=== PATIENT | female | born 1960 | race Caucasian/White ===

== ENCOUNTER 2024-02-20 08:56 | Emergency (ER) | payer BC ==
[~2024-02-20] VITALS: Ht 162.6 cm; Wt 65.8 kg
[~2024-02-20 08:56] MED LIST: Carafate1 GM/10 ML PO; IBUP400 PO
[2024-02-20] MEDS ORDERED: CHLO25B PO (09:50)
[2024-02-20] MEDS ORDERED: LISI20 PO (09:51)
[2024-02-20 09:52] LABS: BASOPHILS ABSOLUTE AUTO 0.03 K/mm3 (0.00-0.23); BASOPHILS PERCENT AUTO 0 % (0-2); EOSINOPHILS ABSOLUTE AUTO 0.08 K/mm3 (0.00-0.68); EOSINOPHILS PERCENT AUTO 1 % (0-6); IMMATURE GRAN ABSOLUTE AUTO 0.02 K/mm3 (0.00-0.10); IMMATURE GRAN PERCENT AUTO 0 % (0-1); LYMPHOCYTES ABSOLUTE AUTO 1.52 K/mm3 (0.84-5.20); LYMPHOCYTES PERCENT AUTO 17 % (21-46); MONOCYTES ABSOLUTE AUTO 0.42 K/mm3 (0.16-1.47); MONOCYTES PERCENT AUTO 5 % (4-13); Mean Corpuscular HGB 33.2 pg (26.0-34.0); Mean Corpuscular HGB Conc 35.7 g/dL (31.5-36.5); Mean Corpuscular Volume 93 fL (80-100); Mean Platelet Volume 9.2 fL (9.1-12.4); NEUTROPHILS ABSOLUTE AUTO 7.06 K/mm3 (1.96-9.15); NEUTROPHILS PERCENT AUTO 77 % (41-73); Platelet Count 317 K/mm3 (150-400); RDW Coefficient Variation 12.8 % (11.7-14.2); RDW Standard Deviation 43.6 fL (35.1-46.3); Red Blood Cell Count 4.52 M/mm3 (3.80-5.20); White Blood Cell Count 9.13 K/mm3 (4.00-11.30)
[2024-02-20 10:25] LABS: Thyroid Stimulating Hormone 1.39 uIU/mL (0.360-4.800)
[2024-02-20 10:33] LABS: Albumin, Blood 3.9 g/dL (3.4-5.0); Albumin/Globulin Ratio 1.2 (0.8-1.8); Bilirubin, Total 0.7 mg/dL (0.1-1.0); Bun/Creatinine Ratio 30.1 (12.0-20.0); Calcium, Blood 8.9 mg/dL (8.5-10.1); Creatinine, Blood 0.67 mg/dL (0.40-1.00); Globulin, Blood 3.3 g/dL (2.2-4.0); Potassium, Blood 3.2 mmol/L (3.5-5.5); Total Protein, Blood 7.2 g/dL (6.4-8.2)
[2024-02-20] MEDS ORDERED: Potassium Chloride 20 MEQ TabCR PO ONE (11:00)
[2024-02-20 13:10] VITALS: BP 148/98
== END 2024-02-20 13:13 | disposition home or self-care (01) ==
LOC: ER 08:56
PROVIDERS: Emergency Medicine
DX: R55 Syncope and collapse (principal); R00.2 Palpitations; E87.6 Hypokalemia; I10 Essential (primary) hypertension; F17.210 Nicotine dependence, cigarettes, uncomplicated; Z88.8 Allergy status to other drugs, medicaments and biological substances
CPT/HCPCS: 80053; 83735; 83880; 84443; 85025; 93005; 93010; 93246; 99284-25; A9270

== ENCOUNTER → 2024-03-27 | Outpatient (CLI) | payer BC ==
[~2024-03-27] MED LIST changes: +CEPH500 PO; +CHLO25B PO; +HYDCHL25 PO; +LISI20 PO; +OXAYDO5 M7 PO
[2024-03-27 08:48] LABS: BASOPHILS ABSOLUTE AUTO 0.02 K/mm3 (0.00-0.23); BASOPHILS PERCENT AUTO 0 % (0-2); EOSINOPHILS ABSOLUTE AUTO 0.02 K/mm3 (0.00-0.68); EOSINOPHILS PERCENT AUTO 0 % (0-6); Hemoglobin 17.3 g/dL (11.5-16.0); IMMATURE GRAN ABSOLUTE AUTO 0.04 K/mm3 (0.00-0.10); IMMATURE GRAN PERCENT AUTO 0 % (0-1); LYMPHOCYTES ABSOLUTE AUTO 1.45 K/mm3 (0.84-5.20); LYMPHOCYTES PERCENT AUTO 11 % (21-46); MONOCYTES ABSOLUTE AUTO 0.68 K/mm3 (0.16-1.47); MONOCYTES PERCENT AUTO 5 % (4-13); Mean Corpuscular HGB 34.3 pg (26.0-34.0); Mean Corpuscular Volume 95 fL (80-100); Mean Platelet Volume 9.2 fL (9.1-12.4); NEUTROPHILS ABSOLUTE AUTO 10.53 K/mm3 (1.96-9.15); NEUTROPHILS PERCENT AUTO 83 % (41-73); Platelet Count 338 K/mm3 (150-400); RDW Coefficient Variation 12.9 % (11.7-14.2); RDW Standard Deviation 44.8 fL (35.1-46.3); Red Blood Cell Count 5.05 M/mm3 (3.80-5.20); White Blood Cell Count 12.74 K/mm3 (4.00-11.30)
[2024-03-27 09:01] LABS: Albumin/Globulin Ratio 1.1 (0.8-1.8); Bilirubin, Total 0.5 mg/dL (0.1-1.0); Bun/Creatinine Ratio 18.9 (12.0-20.0); Calcium, Blood 9.2 mg/dL (8.5-10.1); Creatinine, Blood 1.11 mg/dL (0.40-1.00); Globulin, Blood 3.8 g/dL (2.2-4.0); Total Protein, Blood 7.8 g/dL (6.4-8.2)
== END | disposition home or self-care (01) ==
LOC: LAB 08:44 → LAB SHORT 08:44
PROVIDERS: Family Medicine
DX: R10.9 Unspecified abdominal pain (principal)
CPT/HCPCS: 80053; 83690; 85025

== ENCOUNTER 2024-03-28 12:57 | Inpatient (IN) | payer BC ==
[~2024-03-28] VITALS: Ht 162.6 cm; Wt 64.5 kg
[2024-03-28 13:34] VITALS: BP 106/71
[2024-03-28] MEDS ORDERED: Morphine Sulfate 4 MG/1 ML Injection IV PRN (16:25)
[2024-03-28] MEDS ORDERED: Ondansetron HCl 2 MG / ML 2ML Vial IV PRN (16:30)
[2024-03-28] MEDS ORDERED: Lactated Ringer's 1,000 ML IV SCH (16:30)
[2024-03-28] MEDS ORDERED: Potassium Chloride 40 MEQ in NS 250 ML IV ONE (16:35)
--- NOTE | 2024-03-28 19:11 | NUR ---
ADMISSION NOTE/SHIFT ASSESSMENT PATIETN A/OX4, ABLE TO MKAE NEEDS KNOWN. INDEPENDENT WITH AMBULATION. DIRECT ADMIT FROM [facility], PATIENT WITH PIV ACCESS TO L AC UPON ARRIVAL WHICH WAS REMOVED DUE TO PAIN. NEW PIV PLACED TO LEFT FA. LACTATED RINGERS AND POTASSIUM CHLORIDE INFUSING PER SEP. MORPHINE GIVEN FOR LOWER ABDOMINAL PAIN. VSS, BLOOD PRESSURES SOFT, PATIENT DENIES LIGHT HEADEDNESS OR DIZZINESS. PATIENT SMOKES APPROX 10 CIGARETTES A DAY, REFUSING NICOTINE PATCH AT THIS TIME. INFORMED PATIENT IT IS AVAILABLE UPON REQUEST. PATIENT SKIN INTACT, NO ISSUES NOTED. REMAINS NPO D/T SMALL BOWEL OBSTRUCTION. DENIES NAUSEA AT THIS TIME. NO OTHER CONCERNS.
[2024-03-28 20:06] VITALS: BP 131/81
[2024-03-29 02:14] VITALS: BP 108/61
[2024-03-29 05:10] LABS: BASOPHILS ABSOLUTE AUTO 0.02 K/mm3 (0.00-0.23); BASOPHILS PERCENT AUTO 0 % (0-2); EOSINOPHILS ABSOLUTE AUTO 0.21 K/mm3 (0.00-0.68); EOSINOPHILS PERCENT AUTO 3 % (0-6); Hematocrit 36.8 % (33.0-51.0); Hemoglobin 12.7 g/dL (11.5-16.0); IMMATURE GRAN ABSOLUTE AUTO 0.02 K/mm3 (0.00-0.10); IMMATURE GRAN PERCENT AUTO 0 % (0-1); LYMPHOCYTES ABSOLUTE AUTO 1.99 K/mm3 (0.84-5.20); LYMPHOCYTES PERCENT AUTO 31 % (21-46); MONOCYTES ABSOLUTE AUTO 0.51 K/mm3 (0.16-1.47); MONOCYTES PERCENT AUTO 8 % (4-13); Mean Corpuscular HGB 33.8 pg (26.0-34.0); Mean Corpuscular HGB Conc 34.5 g/dL (31.5-36.5); Mean Corpuscular Volume 98 fL (80-100); Mean Platelet Volume 9.8 fL (9.1-12.4); NEUTROPHILS ABSOLUTE AUTO 3.71 K/mm3 (1.96-9.15); NEUTROPHILS PERCENT AUTO 57 % (41-73); Platelet Count 237 K/mm3 (150-400); RDW Coefficient Variation 12.7 % (11.7-14.2); RDW Standard Deviation 45.7 fL (35.1-46.3); Red Blood Cell Count 3.76 M/mm3 (3.80-5.20); White Blood Cell Count 6.46 K/mm3 (4.00-11.30)
[2024-03-29 05:43] LABS: Albumin/Globulin Ratio 1.1 (0.8-1.8); Bilirubin, Total 0.5 mg/dL (0.1-1.0); Calcium, Blood 8.7 mg/dL (8.5-10.1); Creatinine, Blood 0.68 mg/dL (0.40-1.00); Globulin, Blood 2.7 g/dL (2.2-4.0); Potassium, Blood 3.9 mmol/L (3.5-5.5); Total Protein, Blood 5.7 g/dL (6.4-8.2)
--- NOTE | 2024-03-29 05:45 | NUR ---
SHIFT SUMMARY PT DENIES PAIN, N/V, DISCOMFORT DURING THIS SHIFT. PT REPORTS NO BM OR PASSING GAS @NIGHT TIME. PT'S LAYING IN BED WITH THE PT. LR INFUSING ORDERED. BOWEL TONES HYPOACTIVE PER AUSCULTATION. ABDOMEN TENDER, MODERATELY DISTENDED PER PALPATION. PT AMBULATES INDEPENDENTLY IN THE HOSPITAL ROOM. NO ACUTE EVENTS DURING THIS SHIFT. BED AT THE LOWEST POSITION, CALL LIGHT WITHIN REACH. PT IS A&O X4, ABLE TO MAKE HER NEEDS KNOWN.
[2024-03-29 07:21] VITALS: BP 130/77
[2024-03-29] MEDS ORDERED: Heparin Sodium,Porcine 5,000 UNIT/0.5 ML SDV SC SCH (09:00)
[2024-03-29 15:33] VITALS: BP 164/86
[2024-03-29] MEDS ORDERED: Piperacillin/Tazobactam Sod 3.375 GM in NS 100 ML IV SCH (16:40)
[2024-03-29] MEDS ORDERED: HydrALAZINE HCl 20 MG / ML 1ML Vial IV PRN (17:05)
[2024-03-29 18:11] VITALS: BP 165/87
[2024-03-29] MEDS ORDERED: HydroCHLOROthiazide 25 mg Tab PO PRN (18:45)
[2024-03-29] MEDS ORDERED: Lisinopril 20 MG Tab PO ONE (18:45)
--- NOTE | 2024-03-29 18:46 | NUR ---
TELEPHONE ORDER SPOKE WITH MD REGARDING PATIENT'S ELEVATED BP SYSTOLIC >160s. HYDRALAZINE INEFFECTIVE. ONE TIME ORDER FOR LISINOPRIL 20MG NOW. ORDERS TO RECHECK BLOOD PRESSURE AT 2100, IF SBP>160 ADMINISTER HYDROCHLORITHIAZIDE 12.5MG PO.
--- NOTE | 2024-03-29 19:21 | NUR ---
SHIFT SUMMARY PATIENT A/OX4, INDEPENDENT WITH AMBULATION AND ADLs. SHOWERED THIS AM AND WALKER THROUGHOUT THE HOSPITAL. DENIES PAIN THIS SHIFT, TOLERATING CLEAR LIQUID DIET. NO BOWEL MOVEMENTS THIS SHIFT, BUT PATIENT STATES IS PASSING GAS. SBP ELEVATED THIS EVENING AND HOME MEDICATION ORDERED. HYDRALAZINE GIVEN, INEFFECTIVE. KAIAWHINA KURA [place] MAORI MD NOTIFIED AND ONE TIME ORDER OF LISINOPRIL GIVEN. INFORMED [employer] PUZZLE MAKER TO ADMINISTER ONE TIME ORDER OF HYDROCHLORITHIAZIDE IF SBP REMAINS >160 AT 2100. PATIENT COMPLAINING OF HEADACHE, PATIENT BELIEVES R/T ELEVATED BLOOD PRESSURE. SURGERY CONSULTED AND PLAN TO HAVE LAPROSCOPIC ABDOMINAL SURGERY TOMORROW AT 1030. PATIENT TO BE NPO AT 0400 03/30/24, MAY REMAIN ON CLEAR LIQUIDS UNTIL THEN. AT BEDSIDE DURING SHIFT REPORT. NO OTHER CONCERNS AT THIS TIME.
[2024-03-29 19:34] VITALS: BP 158/89
[2024-03-29 20:53] VITALS: BP 130/79
[2024-03-30] VITALS (25 sets, daily range): BP systolic 115–159; BP diastolic 62–95
[2024-03-30 05:49] LABS: BASOPHILS ABSOLUTE AUTO 0.03 K/mm3 (0.00-0.23); BASOPHILS PERCENT AUTO 0 % (0-2); EOSINOPHILS ABSOLUTE AUTO 0.11 K/mm3 (0.00-0.68); EOSINOPHILS PERCENT AUTO 2 % (0-6); Hematocrit 37.1 % (33.0-51.0); Hemoglobin 13.2 g/dL (11.5-16.0); IMMATURE GRAN ABSOLUTE AUTO 0.03 K/mm3 (0.00-0.10); IMMATURE GRAN PERCENT AUTO 0 % (0-1); LYMPHOCYTES ABSOLUTE AUTO 1.65 K/mm3 (0.84-5.20); LYMPHOCYTES PERCENT AUTO 23 % (21-46); MONOCYTES ABSOLUTE AUTO 0.58 K/mm3 (0.16-1.47); MONOCYTES PERCENT AUTO 8 % (4-13); Mean Corpuscular HGB 33.7 pg (26.0-34.0); Mean Corpuscular HGB Conc 35.6 g/dL (31.5-36.5); Mean Corpuscular Volume 95 fL (80-100); Mean Platelet Volume 10.5 fL (9.1-12.4); NEUTROPHILS ABSOLUTE AUTO 4.84 K/mm3 (1.96-9.15); NEUTROPHILS PERCENT AUTO 67 % (41-73); Platelet Count 248 K/mm3 (150-400); RDW Coefficient Variation 12.4 % (11.7-14.2); RDW Standard Deviation 43.4 fL (35.1-46.3); Red Blood Cell Count 3.92 M/mm3 (3.80-5.20); White Blood Cell Count 7.24 K/mm3 (4.00-11.30)
--- NOTE | 2024-03-30 05:57 | NUR ---
SHIFT SUMMARY: PATIENT IS A&OX4, VSS, REPORTS ABD. DISCOMFORT AND SLIGHT NAUSEA BUT HAS REFUSES ANY PAIN OR NAUSEA MEDICATION. PATIENT HAS BEEN NPO SINCE [place]. IS AT BEDSIDE.
[2024-03-30 06:26] LABS: Albumin, Blood 3.2 g/dL (3.4-5.0); Albumin/Globulin Ratio 1.2 (0.8-1.8); Bilirubin, Total 0.4 mg/dL (0.1-1.0); Bun/Creatinine Ratio 10.3 (12.0-20.0); Calcium, Blood 9.1 mg/dL (8.5-10.1); Creatinine, Blood 0.48 mg/dL (0.40-1.00); Globulin, Blood 2.7 g/dL (2.2-4.0); Potassium, Blood 3.2 mmol/L (3.5-5.5); Total Protein, Blood 5.9 g/dL (6.4-8.2)
[2024-03-30] MEDS ORDERED: Lisinopril 20 MG Tab PO SCH (09:00)
[2024-03-30] MEDS ORDERED: Lactated Ringer's 1,000 ML IV SCH ×2 (14:10→18:00)
--- NOTE | 2024-03-30 14:39 | NUR ---
Ambulatory in Day SurgeryPre-Op teaching done. Pt verbalizes understanding. Patient confirms NPO status and agrees with scheduled surgery. History, Chart, Medications and Allergies reviewed before start of procedure.
[2024-03-30] MEDS ORDERED: Piperacillin/Tazobactam Sod 3.375 GM ONE (14:56)
[2024-03-30] MEDS ORDERED: Bupivacaine 0.5% HCl 5 MG/ML 30MLVIAL ONE (15:02)
--- NOTE | 2024-03-30 15:15 | NUR ---
SHIFT SUMMARY AND TRANSFER TO DAY SURGERY PATIENT ALERT AND INTERACTIVE. PATIENT INDEPENDENT IN THE ROOM. PATIENT DENIES ANY PAIN BUT HAD SOME NAUSEA AT START OF SHIFT. PATIENT REPORTS FEELING FULL AND BLOATED. PATIENT EAGER TO GET SURGERY DONE. PROVIDED EDUCATION ON MOBILIZING POST OP AND PAIN MANAGEMENT. PATIENT TRANSPORTED TO DAY SURGERY BY DAY SURGERY STAFF
[2024-03-30] MEDS ORDERED: FentaNYL Citrate 50 MCG/ML 2 ML Injection ONE ×2 (15:23→18:44)
[2024-03-30] MEDS ORDERED: Midazolam HCl 1MG / ML 2ML Vial ONE (15:23)
[2024-03-30] MEDS ORDERED: Rocuronium Bromide 10 MG/ML 5ML Injection IV ONE (15:23)
[2024-03-30] MEDS ORDERED: Ondansetron HCl 2 MG / ML 2ML Vial ONE ×2 (15:45→18:24)
[2024-03-30] MEDS ORDERED: Neostigmine Methylsulfate 5MG/5ML SYR ONE (15:45)
[2024-03-30] MEDS ORDERED: Ketorolac Tromethamine 30mg Vial ONE (15:45)
[2024-03-30] MEDS ORDERED: Dexamethasone Sod Phos 10 MG/ML 1ML VIAL ONE (15:45)
[2024-03-30] MEDS ORDERED: Glycopyrrolate 0.2 MG/ML 5ML VIAL ONE (15:45)
[2024-03-30] MEDS ORDERED: Bupivacaine HCl 0.25% 30 ML Injection ONE (16:00)
[2024-03-30] MEDS ORDERED: EpiNEPhrine 1 MG/1 ML 1ML Vial ONE (16:00)
[2024-03-30] MEDS ORDERED: ePHEDrine Sulfate 50 MG/ML 1ML Injection ONE (16:49)
--- NOTE | 2024-03-30 17:25 | NUR ---
03/30/24 1725 Ashley Miramontes 3.375 GIVEN BY ANESTHESIA AT 1523
[2024-03-30] MEDS ORDERED: propofoL 40 ML IV ONE (17:27)
[2024-03-30] MEDS ORDERED: OxyCODONE HCL 5 MG TAB PO PRN (18:00)
[2024-03-30] MEDS ORDERED: Metoclopramide HCl 5MG / ML 2ML Vial ONE (18:38)
[2024-03-30] MEDS ORDERED: HYDROmorphone HCl/Pf 1MG SYR ONE (18:46)
--- NOTE | 2024-03-30 19:10 | NUR ---
DR DOMINGUEZ AT BEDSIDE, AWARE OF HR IN 40S, BP WITHIN NORMAL LIMITS, DR DOMINGUEZ NOT CONCERNED AT THIS TIME, NO FURTHER INTERVENTION REQUIRED.
--- NOTE | 2024-03-30 19:25 | NUR ---
RN CALLED FOR REPORT AT 1845, PT BEGAN TO HAVE PAIN AFTER RN CALLED AND PAIN TREATMENT BEGAN. AFTER 30 MINUTES OF NO CALL BACK FROM RN, RN CALLED AGAIN FOR REPORT. PT REMAINS STABLE IN PACU AT THIS TIME
[2024-03-31 02:11] VITALS: BP 116/78
[2024-03-31 04:10] VITALS: BP 126/77
[2024-03-31 05:06] LABS: BASOPHILS ABSOLUTE AUTO 0.03 K/mm3 (0.00-0.23); BASOPHILS PERCENT AUTO 0 % (0-2); EOSINOPHILS PERCENT AUTO 0 % (0-6); Hematocrit 41.2 % (33.0-51.0); Hemoglobin 14.3 g/dL (11.5-16.0); IMMATURE GRAN ABSOLUTE AUTO 0.04 K/mm3 (0.00-0.10); IMMATURE GRAN PERCENT AUTO 0 % (0-1); LYMPHOCYTES ABSOLUTE AUTO 0.62 K/mm3 (0.84-5.20); LYMPHOCYTES PERCENT AUTO 5 % (21-46); MONOCYTES ABSOLUTE AUTO 0.62 K/mm3 (0.16-1.47); MONOCYTES PERCENT AUTO 5 % (4-13); Mean Corpuscular HGB 33.6 pg (26.0-34.0); Mean Corpuscular HGB Conc 34.7 g/dL (31.5-36.5); Mean Corpuscular Volume 97 fL (80-100); Mean Platelet Volume 10.6 fL (9.1-12.4); NEUTROPHILS ABSOLUTE AUTO 10.99 K/mm3 (1.96-9.15); NEUTROPHILS PERCENT AUTO 90 % (41-73); Platelet Count 249 K/mm3 (150-400); RDW Coefficient Variation 12.5 % (11.7-14.2); RDW Standard Deviation 44.3 fL (35.1-46.3); Red Blood Cell Count 4.25 M/mm3 (3.80-5.20)
[2024-03-31 05:30] LABS: Bilirubin, Total 0.3 mg/dL (0.1-1.0); Bun/Creatinine Ratio 13.1 (12.0-20.0); Creatinine, Blood 0.61 mg/dL (0.40-1.00); Globulin, Blood 2.9 g/dL (2.2-4.0); Potassium, Blood 3.5 mmol/L (3.5-5.5); Total Protein, Blood 5.9 g/dL (6.4-8.2)
[2024-03-31 05:53] LABS: Cancer Antigen 125 129.2 U/mL (1.5-35.0); Carcinoembryonic Antigen 2.1 ng/mL (0.0-3.0)
--- NOTE | 2024-03-31 06:31 | NUR ---
SHIFT SUMMARY NOC. PT POD 1 FOR EX LAP CONVERTED TO LAPAROTOMY, WITH STOMA ESTABLISHMENT. PT TOLERATING CLEAR LIQUIDS. PT MEDICATED FOR PAIN WITH REPORTED RELIEF. PT UP TO BR AND VOIDING URINE. OSTOMY PRODUCED LIQUID BROWN OUTPUT THIS SHIFT, OSTOMY BEEFY RED. PT SPOUSE AT BEDSIDE. PT RESTED WITH EYES CLOSED AND CALL LIGHT IN REACH.
[2024-03-31 07:07] VITALS: BP 115/66
[2024-03-31] MEDS ORDERED: Heparin Sodium,Porcine 5,000 UNIT/0.5 ML SDV SC SCH ×2 (09:00)
[2024-03-31] MEDS ORDERED: Lactated Ringer's 1,000 ML IV SCH (12:50)
[2024-03-31 15:29] VITALS: BP 131/83
--- NOTE | 2024-03-31 18:24 | NUR ---
SHIFT SUMMARY POD1 EX LAP TO LAPAROTOMY, A/OX4, VSS, TOLERATINGPO, INDEPENDENTTO THE BATHROOM, VOIDING INDEPENDENTLY, MINIMAL PAIN THIS AM WITH INCREASING PAIN MID TO LATE SHIFT, THIS PAINN IS MANAGED WITH PO AND IV MEDICATIONS. OME OUTPUT FROM HER OSTOMY. NO ACCUTE EVENTS THIS SHIFT, CALL LIGHT IN REACH.
[2024-03-31 19:45] VITALS: BP 179/99
[2024-04-01 01:48] VITALS: BP 134/85
[2024-04-01 03:21] VITALS: BP 129/78
[2024-04-01 04:10] LABS: BASOPHILS ABSOLUTE AUTO 0.02 K/mm3 (0.00-0.23); BASOPHILS PERCENT AUTO 0 % (0-2); EOSINOPHILS ABSOLUTE AUTO 0.11 K/mm3 (0.00-0.68); EOSINOPHILS PERCENT AUTO 2 % (0-6); Hematocrit 37.1 % (33.0-51.0); Hemoglobin 13.1 g/dL (11.5-16.0); IMMATURE GRAN ABSOLUTE AUTO 0.02 K/mm3 (0.00-0.10); IMMATURE GRAN PERCENT AUTO 0 % (0-1); LYMPHOCYTES ABSOLUTE AUTO 1.84 K/mm3 (0.84-5.20); LYMPHOCYTES PERCENT AUTO 27 % (21-46); MONOCYTES ABSOLUTE AUTO 0.79 K/mm3 (0.16-1.47); MONOCYTES PERCENT AUTO 11 % (4-13); Mean Corpuscular HGB Conc 35.3 g/dL (31.5-36.5); Mean Corpuscular Volume 96 fL (80-100); Mean Platelet Volume 10.1 fL (9.1-12.4); NEUTROPHILS ABSOLUTE AUTO 4.15 K/mm3 (1.96-9.15); NEUTROPHILS PERCENT AUTO 60 % (41-73); Platelet Count 257 K/mm3 (150-400); RDW Coefficient Variation 12.8 % (11.7-14.2); RDW Standard Deviation 45.3 fL (35.1-46.3); Red Blood Cell Count 3.85 M/mm3 (3.80-5.20); White Blood Cell Count 6.93 K/mm3 (4.00-11.30)
[2024-04-01 04:26] LABS: Bun/Creatinine Ratio 9.9 (12.0-20.0); Calcium, Blood 8.8 mg/dL (8.5-10.1); Creatinine, Blood 0.71 mg/dL (0.40-1.00); Potassium, Blood 3.1 mmol/L (3.5-5.5)
--- NOTE | 2024-04-01 06:28 | NUR ---
SHIFT SUMMARY NOC. PT POD 2 FOR EX LAP CONVERTED TO LAPAROTOMY WITH STOMA ESTABLISHMENT. PT TOLERATING CLEAR LIQUIDS. PT REPORTED NAUSEA AND PAIN THIS SHIFT. NO VOMIT EPISODES. PT REPORTED RELIEF WITH MEDICATION. PAIN WAS DIFFICULT TO CONTROL WITH ORALS ALONE. PT VOIDING URINE AND AMBULATING TO BR WITH SBA. STOMA BEEFY RED AND PRODUCING LIQUID BROWN OUTPUT. PT SPOUSE AT BEDSIDE. PT RESTED WITH EYES CLOSED AND CALL LIGHT IN REACH.
[2024-04-01 07:49] VITALS: BP 138/78
[2024-04-01] MEDS ORDERED: Enoxaparin 40 MG/0.4 ML SYR SC SCH (09:00)
[2024-04-01] MEDS ORDERED: Potassium Chloride 40 MEQ in NS 250 ML IV ONE (13:30)
[2024-04-01] MEDS ORDERED: Ketorolac Tromethamine 30mg Vial IV PRN (14:10)
--- NOTE | 2024-04-01 17:41 | NUR ---
OSTOMY HOME SUPPLY ORDER SHEET FILLED OUT PATIENT INFORMATION AND FAXED FORM TO [facility], GAVE PACKET TO AUDRA FOR HOME EDUCATION.
--- NOTE | 2024-04-01 18:28 | NUR ---
SHIFT SUMMARY POD2 LAP TO OPEN LAPAROTOMY, A/OX4, VSS, TOLERATING PO, PAINFUL BUT SOME IMPROVEMENT THIS AFTERNOON, STOMA HAS OUTPUT T/O THE SHIFT TODAY. NO ACUTE EVENTS THIS SHIFT, CALL LIGHT IN REACH.
[2024-04-01 19:37] VITALS: BP 139/96
[2024-04-02 04:44] VITALS: BP 156/78
[2024-04-02 05:12] LABS: BASOPHILS ABSOLUTE AUTO 0.02 K/mm3 (0.00-0.23); BASOPHILS PERCENT AUTO 0 % (0-2); EOSINOPHILS ABSOLUTE AUTO 0.16 K/mm3 (0.00-0.68); EOSINOPHILS PERCENT AUTO 3 % (0-6); Hematocrit 35.5 % (33.0-51.0); Hemoglobin 12.4 g/dL (11.5-16.0); IMMATURE GRAN ABSOLUTE AUTO 0.02 K/mm3 (0.00-0.10); IMMATURE GRAN PERCENT AUTO 0 % (0-1); LYMPHOCYTES ABSOLUTE AUTO 1.52 K/mm3 (0.84-5.20); LYMPHOCYTES PERCENT AUTO 26 % (21-46); MONOCYTES ABSOLUTE AUTO 0.57 K/mm3 (0.16-1.47); MONOCYTES PERCENT AUTO 10 % (4-13); Mean Corpuscular HGB 33.8 pg (26.0-34.0); Mean Corpuscular HGB Conc 34.9 g/dL (31.5-36.5); Mean Corpuscular Volume 97 fL (80-100); Mean Platelet Volume 10.6 fL (9.1-12.4); NEUTROPHILS ABSOLUTE AUTO 3.54 K/mm3 (1.96-9.15); NEUTROPHILS PERCENT AUTO 61 % (41-73); Platelet Count 240 K/mm3 (150-400); RDW Coefficient Variation 12.6 % (11.7-14.2); RDW Standard Deviation 45.1 fL (35.1-46.3); Red Blood Cell Count 3.67 M/mm3 (3.80-5.20); White Blood Cell Count 5.83 K/mm3 (4.00-11.30)
[2024-04-02 05:35] LABS: Bun/Creatinine Ratio 13.2 (12.0-20.0); Calcium, Blood 8.9 mg/dL (8.5-10.1); Creatinine, Blood 0.61 mg/dL (0.40-1.00); Potassium, Blood 3.5 mmol/L (3.5-5.5)
--- NOTE | 2024-04-02 06:34 | NUR ---
SHIFT SUMMARY NOC. PT POD 3 FOR EX LAP CONVERTED TO LAPAROTOMY WITH STOMA ESTABLISHMENT. PT TOLERATING REGULAR DIET. PT DENIES NAUSEA THIS SHIFT. PT MEDICATED WITH OXY 10MG WITH REPORTED RELIEF OF SX. PT'S OSTOMY PRODUCING LIQUID BROWN OUTPUT. PT VOIDING URINE AND AMBULATING TO WELL INDEPENDENTLY. STOMA IS BEEFY RED. PT'S SPOUSE AT BEDSIDE. PT RESTED WITH EYES CLOSED AND CALL LIGHT IN REACH.
[2024-04-02 07:45] VITALS: BP 150/77
[2024-04-02 15:04] VITALS: BP 160/78
[2024-04-02] MEDS ORDERED: OXAYDO5 M7 PO ×2 (15:27)
[2024-04-02] MEDS ORDERED: HYDCHL25 PO ×2 (15:28)
--- NOTE | 2024-04-02 16:45 | NUR ---
DISCHARGE SUMMARY POD 3 LAP TO OPEN LAPAROTOMY, A/OX4, VSS, TOLERATING PO, INDEPENDENT TO THE BATHROOM TO VOID, OUTPUT FROM STOMA, EDUCATION PROVIDED FOR HOME CARE OF OSTOMY AND DEMONSTRATION OF CHANGING OUT THE APPLIANCE PROVIDED BY NURSING STAFF, IV ACCESS REMOVED JAY DISCUSSING DC INSTRUCTIONS. DISCUSSED DISCHARGE INSTRUCTIONS WITH HER AND HER INCLUDING HOME CARE, MEDICATIONS, AND FOLLOW UP APPOINTMENTS. NO QUESTIONS AT THIS TIME, ESCORTED OUT VIA WC TO GO HOME.
== END 2024-04-02 16:49 | disposition home or self-care (01) | DRG 330 ==
LOC: MEDS 12:57 → SURS 03-30 16:05
PROVIDERS: Surgery; ADMIT Internal Medicine
PROC: 0D1B0Z4 Bypass Ileum to Cutaneous, Open Approach (ICD-10-PCS; 2024-03-30)
PROC: 0WJG4ZZ Inspection of Peritoneal Cavity, Percutaneous Endoscopic Approach (ICD-10-PCS; 2024-03-30)
PROC: 0DBU0ZZ Excision of Omentum, Open Approach (ICD-10-PCS; principal; 2024-03-30 13:30)
DX: K56.600 Partial intestinal obstruction, unspecified as to cause (principal); C56.9 Malignant neoplasm of unspecified ovary; E87.6 Hypokalemia; I10 Essential (primary) hypertension; F17.210 Nicotine dependence, cigarettes, uncomplicated; E78.5 Hyperlipidemia, unspecified; Z98.890 Other specified postprocedural states; Z88.8 Allergy status to other drugs, medicaments and biological substances; Z79.899 Other long term (current) drug therapy; R10.9 Unspecified abdominal pain; D25.9 Leiomyoma of uterus, unspecified; K42.9 Umbilical hernia without obstruction or gangrene
CPT/HCPCS: 36415; 71260; 74022; 74177; 80048; 80053; 82378; 83690; 85025; 86304; 88305; 88341; 88342; A9270; J0171; J0360; J1100; J1170; J1644; J1650; J1885; J2250; J2270; J2405; J2543; J2704; J2710; J2765; J3010; J3480; J7050; J7120; Q9967

== ENCOUNTER → 2024-03-28 | Outpatient (CLI) | payer BC ==
[~2024-03-28] MED LIST changes: -CEPH500 PO; -HYDCHL25 PO; -OXAYDO5 M7 PO
[2024-03-28 08:12] LABS: BASOPHILS ABSOLUTE AUTO 0.02 K/mm3 (0.00-0.23); BASOPHILS PERCENT AUTO 0 % (0-2); EOSINOPHILS PERCENT AUTO 1 % (0-6); Hematocrit 44.2 % (33.0-51.0); Hemoglobin 15.5 g/dL (11.5-16.0); IMMATURE GRAN ABSOLUTE AUTO 0.03 K/mm3 (0.00-0.10); IMMATURE GRAN PERCENT AUTO 0 % (0-1); LYMPHOCYTES ABSOLUTE AUTO 2.02 K/mm3 (0.84-5.20); LYMPHOCYTES PERCENT AUTO 17 % (21-46); MONOCYTES ABSOLUTE AUTO 0.64 K/mm3 (0.16-1.47); MONOCYTES PERCENT AUTO 5 % (4-13); Mean Corpuscular HGB 33.7 pg (26.0-34.0); Mean Corpuscular HGB Conc 35.1 g/dL (31.5-36.5); Mean Corpuscular Volume 96 fL (80-100); Mean Platelet Volume 9.5 fL (9.1-12.4); NEUTROPHILS ABSOLUTE AUTO 8.95 K/mm3 (1.96-9.15); NEUTROPHILS PERCENT AUTO 76 % (41-73); Platelet Count 293 K/mm3 (150-400); RDW Coefficient Variation 12.7 % (11.7-14.2); White Blood Cell Count 11.76 K/mm3 (4.00-11.30)
[2024-03-28 08:23] LABS: Albumin, Blood 3.5 g/dL (3.4-5.0); Albumin/Globulin Ratio 1.1 (0.8-1.8); Bilirubin, Total 0.5 mg/dL (0.1-1.0); Bun/Creatinine Ratio 20.8 (12.0-20.0); Calcium, Blood 8.6 mg/dL (8.5-10.1); Creatinine, Blood 0.72 mg/dL (0.40-1.00); Globulin, Blood 3.3 g/dL (2.2-4.0); Potassium, Blood 3.2 mmol/L (3.5-5.5); Total Protein, Blood 6.8 g/dL (6.4-8.2)
== END ==
LOC: LAB SHORT 08:08
PROVIDERS: Physician Assistant
DX: R10.9 Unspecified abdominal pain (principal)
CPT/HCPCS: 80053; 83690; 85025

== ENCOUNTER 2024-04-03 23:45 | Emergency (ER) | payer BC ==
[~2024-04-03] VITALS: Ht 162.6 cm; Wt 63.5 kg
[~2024-04-03 23:45] MED LIST changes: +HYDCHL25 PO; +OXAYDO5 M7 PO
[2024-04-04 04:20] VITALS: BP 135/85
[2024-04-04] MEDS ORDERED: CEPH500 PO (04:40)
== END 2024-04-04 06:15 | disposition home or self-care (01) ==
LOC: ER 23:45
DX: T81.49XA Infection following a procedure, other surgical site, initial encounter (principal); I10 Essential (primary) hypertension; F17.210 Nicotine dependence, cigarettes, uncomplicated; Z79.899 Other long term (current) drug therapy; Z88.5 Allergy status to narcotic agent
CPT/HCPCS: 99282